=== PATIENT | female | born 1960 | race Caucasian/White ===

== ENCOUNTER 2018-01-31 12:26 | Emergency (ER) | payer SELFPAY ==
[~2018-01-31] VITALS: Ht 154.9 cm; Wt 56.0 kg
[2018-01-31 12:50] VITALS: BP 170/84; PULSE 90; RESP 16; TEMP 97.8; O2SAT 98
--- NOTE | 2018-01-31 13:23 | PD ---
HPI Chief Complaint: Back/ Neck Pain or Injury Time Seen by Provider: 12:57 Travel History International Travel<30 days: No Contact w/Intl Traveler<30days: No Traveled to known affect area: No History of Present Illness HPI 57 YO F presents to the ED for evaluation of 3 day history of 10/10 low back pain. Patient can recall no acute injury or overuse. She endorses urinary hesitancy for the last week or so. Denies dysuria, hematuria, increased urinary frequency. Denies radiation of the pain, saddle anesthesia, incontinence. She never had a problem with this in the past. No treatment attempted at home. PFSH Social History Tobacco Use: Yes Allergies-Medications (Allergen,Severity, Reaction): Coded Allergies: No Known Allergies (Unverified , 01/31/18) Reported Meds & Prescriptions Reported Meds & Active Scripts Active Flexeril (Cyclobenzaprine HCl) 10 Mg Tab 10 Mg PO TID Ibuprofen 800 Mg Tab 800 Mg PO Q8H PRN Bactrim DS (Sulfamethoxazole-Trimethoprim) 800-160 Mg Tab 1 Tab PO BID Review of Systems Except as stated in HPI: all other systems reviewed are Neg Physical Exam Narrative GENERAL: Well-nourished, well-developed white female no acute distress. SKIN: Focused skin assessment warm/dry. HEAD: Normocephalic. EYES: No scleral icterus. No injection or drainage. NECK: Supple, trachea midline. No JVD or lymphadenopathy. CARDIOVASCULAR: Regular rate and rhythm without murmurs, gallops, or rubs. RESPIRATORY: Breath sounds equal bilaterally. No accessory muscle use. GASTROINTESTINAL: Abdomen soft, non-tender, nondistended. MUSCULOSKELETAL: No cyanosis, or edema. Patient walks with a normal gait. 5/5 strength of dorsiflexion, plantarflexion hip and knee flexion bilaterally. BACK: No obvious deformity. No CVA tenderness. No midline tenderness to palpation. Tender to palpation of the very low lumbar spine and across the SI joint. Data Data Last Documented VS Vital Signs Date Time Temp Pulse Resp B/P (MAP) Pulse Ox O2 Delivery O2 Flow Rate FiO2 01/31/18 14:19 20 01/31/18 12:50 97.8 90 170/84 (112) 98 Orders Orders Urinalysis - C+S If Indicated (01/31/18 13:01) Orphenadrine Inj (Norflex Inj) (01/31/18 13:30) Acetamin-Hydrocod 325-5 Mg (Wiley 5-325 (01/31/18 13:30) Ketorolac Inj (Toradol Inj) (01/31/18 13:30) Urine Culture (01/31/18 13:05) Ed Discharge Order (01/31/18 14:20) Labs Laboratory Tests Test 01/31/18 13:05 Urine Color YELLOW Urine Turbidity CLOUDY Urine pH 5.0 Urine Specific [place] 1.020 Urine Protein NEG mg/dL Urine Glucose (UA) NEG mg/dL Urine Ketones NEG mg/dL Urine Occult Blood LARGE Urine Nitrite POS Urine Bilirubin NEGATIVE Urine Urobilinogen LESS THAN 2.0 MG/DL Urine Leukocyte Esterase NEGATIVE Urine RBC /hpf Urine WBC 6 /hpf Urine Squamous Epithelial Cells 5 /hpf Urine Bacteria MANY /hpf Urine Mucus FEW /lpf Microscopic Urinalysis Comment CULTURE INDICATED MDM Medical Decision Making Medical Screen Exam Complete: Yes Emergency Medical Condition: Yes Differential Diagnosis SI joint disorder versus musculoskeletal pain versus pyelonephritis versus UTI versus other Narrative Course 57 YO F presents to the ED for evaluation of 3 day history of 10/10 low back pain. She endorses urinary hesitancy for the last week or so. No red flag symptoms. Vitals reviewed. On exam the patient is tender to palpation over the SI joint and the very low back. No CVA tenderness. No loss of strength in the lower extremities. She is administered Toradol, Norflex IM and a 5 mg Wiley PO. UA reveals 6 WBCs and many bacteria. I do not think this is pyelonephritis. I think it is SI joint dysfunction with a superimposed UTI. Patient is prescribed Bactrim DS twice daily 3 days, short course of anti- inflammatories and muscle relaxants. She is given detailed back care instructions. We discussed reasons to return to the ED. The patient is stable and discharged home. Diagnosis Primary Impression: Low back pain Qualified Codes: M54.5 - Low back pain Additional Impression: Urinary tract infection Qualified Codes: N39.0 - Urinary tract infection, site not specified Referrals: Primary Care Physician Additional Instructions: Rest, hydrate. Resume normal, gentle activity as tolerated. Begin antibiotics today and take them until every pill is gone. Take anti-inflammatories and muscle relaxants as scheduled for the next 24-48 hours. Warm or cold compresses applied to the low back a few times a day may also help to improve your pain symptoms. Follow up with the primary care provider. Return to the ED for worsening symptoms or any urgent or emergent medical condition. Med/Other Pt SpecificInfo: Prescription(s) given Scripts Cyclobenzaprine (Flexeril) 10 Mg Tab 10 MG PO TID for Muscle Spasm, #15 TAB 0 Refills Prov: Shun Garcia MD 01/31/18 Ibuprofen (Ibuprofen) 800 Mg Tab 800 MG PO Q8H Y for Pain/Inflammation, #15 TAB 0 Refills Prov: Shun Garcia MD 01/31/18 Sulfamethoxazole-Trimethoprim (Bactrim DS) 800-160 Mg Tab 1 TAB PO BID for Infection, #6 TAB 0 Refills Prov: Shun Garcia MD 01/31/18 Disposition: 01 DISCHARGE HOME Condition: Stable Gabriela Jonas January 31, 2018 13:23
[2018-01-31] MEDS ORDERED: ACETAMINOPHEN/HYDROcodone 325 MG/5 MG TAB PO ONE (13:30)
[2018-01-31] MEDS ORDERED: KETOROLAC TROMETHAMINE 60 MG/2 ML (IM) VIAL IM ONE (13:30)
[2018-01-31] MEDS ORDERED: ORPHENADRINE INJ 60 MG/2 ML AMP IM ONE (13:30)
[2018-01-31 14:10] LABS: BILIRUBIN, URINE NEGATIVE (NEG); BLOOD, URINE LARGE (NEG); GLUCOSE,URINE NEG (NEG); KETONE, URINE NEG (NEG); URINE COLOR YELLOW (YELLW/STRAW)
[2018-01-31 14:11] LABS: MUCUS URINE FEW /lpf (OCC); NITRITE,URINE POS (NEG); URINE LEUKOCYTE ESTERASE NEGATIVE (NEG)
[2018-01-31 14:12] LABS: BACTERIA, URINE MANY /hpf; SQUAMOUS EPITHELIAL CELL URINE 5 /hpf (0-5)
[2018-01-31] MEDS ORDERED: BACT800T5 PO (14:17)
[2018-01-31] MEDS ORDERED: IBUP1TAB7 PO (14:17)
[2018-01-31] MEDS ORDERED: CYCL10TA PO (14:17)
[2018-01-31 14:19] VITALS: RESP 20
== END 2018-01-31 15:19 | disposition home or self-care (01) ==
LOC: NEPK 12:26
DX: M54.5 Low back pain (principal); N39.0 Urinary tract infection, site not specified; Z72.0 Tobacco use
CPT/HCPCS: 81001; 87077; 87086; 87186; 96372; 99283; J1885; J2360